=== PATIENT | female | born 1985 | race Caucasian/White ===

== ENCOUNTER 2017-05-08 21:19 | Emergency (ER) | payer OTHER ==
[~2017-05-08] VITALS: Ht 172.7 cm; Wt 56.4 kg
[~2017-05-08 21:19] MED LIST: ASCORBIC ACID500 M3 PO; BONIVA150 MG PO; CALCIUM 500 MG1 EACH PO; FLEXERIL10 MG PO; MOTRIN800 MG PO; NO MEDS; PERCOCET 5/31 TABLET PO; XANAX0.5 MG PO
[2017-05-08] MEDS ORDERED: MOTRIN600 MG PO (23:09)
[2017-05-08 23:23] VITALS: BP 117/78
== END 2017-05-08 23:34 | disposition home or self-care (01) ==
LOC: EME 21:19
DX: S40.012A Contusion of left shoulder, initial encounter (principal); S50.02XA Contusion of left elbow, initial encounter; M54.9 Dorsalgia, unspecified; W22.8XXA Striking against or struck by other objects, initial encounter; F17.200 Nicotine dependence, unspecified, uncomplicated
CPT/HCPCS: 72070; 73030; 73080; 99281; 99284